=== PATIENT | female | born 1965 | race Caucasian/White ===

== ENCOUNTER 2024-12-12 10:03 | Outpatient (CLI) | payer MEDICARE, SELFPAY ==
--- NOTE | 2024-12-12 10:08 | XR_ITS ---
FINAL REPORT CLINICAL HISTORY: knot on hand. located on palm of hand, 2nd digit mcp joint COMPARISON: None FINDINGS: Three views of the left hand show no evidence of acute displaced fracture or dislocation of the visualized bony architecture. The joint spaces appear normal. There are changes of osteopenia. There is no evidence of bone destruction. IMPRESSION: Unremarkable exam. Reviewed, Interpreted and Dictated by Gavi Koo MD Transcribed by Teresa Gomez Authenticated and [facility]
== END 2024-12-12 23:59 | disposition home or self-care (01) ==
LOC: RAD 10:07
PROVIDERS: PCP Family Medicine; Visit Provider Physician Assistant Surgical
DX: M79.642 Pain in left hand (principal)
CPT/HCPCS: 73130

== ENCOUNTER 2024-12-23 13:37 | Outpatient (CLI) | payer MEDICARE, SELFPAY ==
--- NOTE | 2024-12-23 13:41 | MR_ITS ---
FINAL REPORT CLINICAL HISTORY: Lt Hand pain knot on palm of hand around 2nd mcp FINDINGS: Multiplanar MR imaging was obtained of the left hand. A skin marker was placed over the site of the clinical abnormality corresponding to the second metacarpal phalangeal joint. On coronal images there is no evidence of marrow edema within the metacarpals or visualized phalanges. On sagittal images there is a small fluid signal intensity structure contiguous with the flexor tendon. The structure measures approximately 5 mm and is likely related to a ganglion cyst. This is well-seen on image 18 of series 7. The flexor tendon is intact. The extensor tendon is intact. There is no soft tissue edema. IMPRESSION: Small, presumed ganglion cyst corresponding to the site of clinical abnormality. Reviewed, Interpreted and Dictated by Franklyn Duggan MD Transcribed by Nancy Noel Authenticated and [facility]
== END 2024-12-23 23:59 | disposition home or self-care (01) ==
LOC: RAD 13:38
PROVIDERS: PCP Family Medicine; Visit Provider Physician Assistant Surgical
DX: M79.642 Pain in left hand (principal); M89.9 Disorder of bone, unspecified
CPT/HCPCS: 73218